=== PATIENT | male | born 1970 | race Caucasian/White ===

== ENCOUNTER 2019-04-07 11:51 | Outpatient (CLI) | payer BC ==
--- NOTE | 2019-04-07 22:35 | RAD ---
LEFT ANKLE THREE VIEWS: 04/07/19 Mild swelling is seen laterally but no acute fracture was visible. The ankle joint itself appears nor mal. There is dense ossification at the insertion of the Achilles tendon on the calcaneus. There may have been old tendinous injury here. A minimal calcaneal spur is seen on the plantar aspect of bone. IMPRESSION: 1. Mild lateral swelling. 2. Chronic changes as noted above. POS: HOME
== END 2019-04-07 11:52 | disposition home or self-care (01) ==
LOC: BURRAD 11:51
PROVIDERS: ATTEND Family Medicine
DX: S93.402A Sprain of unspecified ligament of left ankle, initial encounter (principal); M25.472 Effusion, left ankle; M77.32 Calcaneal spur, left foot; M67.874 Other specified disorders of tendon, left ankle and foot